=== PATIENT | male | born 1990 | race Hispanic/Latino ===

== ENCOUNTER 2016-12-23 15:56 | Emergency (ER) | payer SELFPAY ==
[2016-12-23 17:34] LABS: Hematocrit 47.5 % (35.5-45.6); Hemoglobin 15.8 gm/dl (11.8-15.2); Mean Corpuscular HGB Conc 33 % (32-34); Mean Corpuscular Hemoglobin 30 pg (28-32); Mean Corpuscular Volume 90 fl (84-94); Platelet Count 134 K/mm3 (140-440); Red Blood Count 5.25 M/mm3 (3.65-5.03); Red Cell Distribution Width 13.6 % (13.2-15.2)
[2016-12-23 17:38] LABS: Anion Gap 18 mmol/L; BUN/Creatinine Ratio 10; Blood Urea Nitrogen 6 mg/dL (9-20); Calcium 9.4 mg/dL (8.4-10.2); Carbon Dioxide 25 mmol/L (22-30); Chloride 101.7 mmol/L (98-107); Glucose 105 mg/dL (75-100); Sodium 141 mmol/L (137-145)
[2016-12-23 18:09] LABS: Bilirubin,Urine NEG (Negative); Blood,Urine SM (Negative); Ketones,Urine 20 mg/dL (Negative); Leukocyte Esterase,Urine TR (Negative); Mucus,Urine 3+ /HPF; Nitrite,Urine NEG (Negative); Protein,Urine <15 mg/dL mg/dL (Negative)
--- NOTE | 2016-12-23 19:54 | Emergency Department Report ---
HPI - General Chief Complaint: Pain General Time Seen by Provider: 12/23/16 19:53 - HPI HPI: Patient here reported that he woke up in the middle of the night with body aches , chills low-back pain and swollen lymph nodes on the left side of his neck. He reports productive cough and yellow phlegm. He said he has a history of asthma but he is not having any asthma flare. Generalized pain is 6 out of 10 and achy. No [id number] medication taken. Denies any chest pain or shortness of breath. Denies any headache. Reports difficulty swallowing and but denies any drooling. He reports that he is having chills but does not feel had a fever. Patient able to tolerate fluids. Pain is worse with swallowing better without swelling. ED Past Medical Hx - Past Medical History Previous Medical History?: Yes Hx Asthma: Yes - Surgical History Past Surgical History?: No - Family History Family history: no significant - Social History Smoking Status: Current Every Day Smoker Substance Use Type: Alcohol, Marijuana Other Social History: single - Medications Home Medications: Home Medications Medication Instructions Recorded Confirmed Last Taken Type Cetirizine HCl [Zyrtec] 10 mg PO QAM #14 tablet 12/24/16 Unknown Rx Fluticasone [Flonase] 1 spray NS QDAY #1 bottle 12/24/16 Unknown Rx Penicillin V Potassium 500 mg PO Q8H #30 tablet 12/24/16 Unknown Rx ED Review of Systems ROS: Stated complaint: FLU LIKE SYMPTOMS Other details as noted in HPI Comment: All other systems reviewed and negative Constitutional: chills. denies: fever, weakness Eyes: denies: eye pain, vision change ENT: throat pain. denies: ear pain, hearing loss, epistaxis, congestion Respiratory: cough, wheezing. denies: orthopnea, shortness of breath, SOB with exertion, SOB at rest, stridor Cardiovascular: denies: chest pain, palpitations, edema, syncope Gastrointestinal: denies: abdominal pain, nausea, vomiting, diarrhea Genitourinary: denies: urgency, dysuria, frequency, hematuria, discharge Musculoskeletal: back pain, myalgia. denies: arthralgia Skin: denies: rash Neurological: denies: headache, weakness, numbness, paresthesias, confusion, abnormal gait, vertigo Hematological/Lymphatic: swollen glands. denies: easy bleeding Physical Exam - Physical Exam Vital Signs: Vital Signs 12/23/16 16:53 Temperature 98.1 F Pulse Rate 101 H Respiratory 18 Rate Blood Pressure 138/83 O2 Sat by Pulse 97 Oximetry Vital Signs 12/23/16 12/23/16 12/23/16 16:53 21:31 21:40 Temperature 98.1 F 98.3 F Pulse Rate 101 H 96 H Pulse Rate [ 110 H Anterior Upper Lobe] Respiratory 18 20 Rate Respiratory 21 Rate [Anterior Upper Lobe] Blood Pressure 138/83 Blood Pressure 116/65 [Left] O2 Sat by Pulse 97 98 Oximetry General: This is a 26-year-old male well-nourished well-developed in no acute distress. Physical Exam: Head: Normocephalic, atraumatic, no abrasion, no bruising and no contusion. Eyes: Biateral pupils equal and reactive to light, bilateral EOM intact.. Bilateral conjunctival and sclera without injection, normal accommodation. Ears: Bilateral EAC without any redness drainage or swelling,Bilateral TM pearly reyes bilateral tragus is normal and nontender. No auricular abnormality. No Mastoid bones tenderness. Nose: Moist, congested and erythema. No maxillary or frontal sinus tenderness Mouth: Positive tonsillar erythema without exudates .oral airways patent. tongue is normal. Mouth is moist and uvula is midline Neck: Supple, Positive Cervical adenopathy greater on left than right, full range of motion and no C-spine tenderness. No swelling or tracheal deviation Cardiovascular: S1, S2. Tachycardic at 101 and regular rhythm. No murmur. Capillary refill is less then 3 seconds. Lungs: Scattered wheezes in upper lung olivares. No rhonchi or rales. No chest wall tenderness. No use of accessory muscle MSK: Strength 5/5 in all extremities. No joint deformity or crepitus. Normal inspection. Full range of motion to all extremities Extremities: No clubbing, cyanosis or edema. +2 pulses. No neurovascular compromise Skin: Clean, dry and intact. No rash or lesions. Psych: Normal mood and behavior. ED Course Vital Signs 12/23/16 16:53 Temperature 98.1 F Pulse Rate 101 H Respiratory 18 Rate Blood Pressure 138/83 O2 Sat by Pulse 97 Oximetry Vital Signs 12/23/16 12/23/16 12/23/16 16:53 21:31 21:40 Temperature 98.1 F 98.3 F Pulse Rate 101 H 96 H Pulse Rate [ 110 H Anterior Upper Lobe] Respiratory 18 20 Rate Respiratory 21 Rate [Anterior Upper Lobe] Blood Pressure 138/83 Blood Pressure 116/65 [Left] O2 Sat by Pulse 97 98 Oximetry - Reevaluation(s) Reevaluation #1: 12/23/16 21:00 Inhaler reports that he is sore throat and flulike symptoms. Physical findings for right throat. He was worked up white count elevated, platelets 134 which is low. Urinalysis negative for infection, chest x-ray is negative for any acute findings. Urinalysis positive ketones and is H&H is concentrated. Patient was started on IV fluids 1 L and he was given Decadron 10 mg IV and Toradol 30 mg IV. He voiced that he is feeling better. Influenza test is negative. Reevaluation #2: 12/23/16 21:55 Patient's strep test is negative. CT scan of the neck with contrast ordered. Patient was given Rocephin 1 g IM in the emergency room without any adverse reaction. Reevaluation #3: 12/23/16 22:34 Patient is stable and resting quietly. CT scan of the neck with contrast done. Reevaluation #4: 12/24/16 00:04 Patient is stable, pain is controlled and CT scan revealed tonsillitis with no peritonsillar abscess and chronic sinus disease. No evidence of intra- tonsillar abscess. Reactive cervical adenopathy Reevaluation #5: 12/24/16 00:22 Lung sounds better status post lung sounds clear status post nebulizer treatment ED Medical Decision Making - Lab Data Result diagrams: 12/23/16 17:02 12/23/16 17:02 Lab Results 12/23/16 12/23/16 12/23/16 Range/Units 17:02 17:02 Unknown WBC 16.0 H (4.5-11.0) K/mm3 RBC 5.25 H (3.65-5.03) M/mm3 Hgb 15.8 H (11.8-15.2) gm/dl Hct 47.5 H (35.5-45.6) % MCV 90 (84-94) fl MCH 30 (28-32) pg MCHC 33 (32-34) % RDW 13.6 (13.2-15.2) % Plt Count 134 L (140-440) K/mm3 Sodium 141 (137-145) mmol/L Potassium 4.0 (3.6-5.0) mmol/L Chloride 101.7 (98-107) mmol/L Carbon Dioxide 25 (22-30) mmol/L Anion Gap 18 mmol/L BUN 6 L (9-20) mg/dL Creatinine 0.6 L (0.8-1.5) mg/dL Estimated GFR > 60 ml/min BUN/Creatinine Ratio 10 % Glucose 105 H (75-100) mg/dL Calcium 9.4 (8.4-10.2) mg/dL Urine Color Yellow (Yellow) Urine Turbidity Clear (Clear) Urine pH 6.0 (5.0-7.0) Ur Specific [place] 1.018 (1.003-1.030) Urine Protein <15 mg/dl (Negative) mg/dL Urine Glucose (UA) Neg (Negative) mg/dL Urine Ketones 20 (Negative) mg/dL Urine Blood Sm (Negative) Urine Nitrite Neg (Negative) Urine Bilirubin Neg (Negative) Urine Urobilinogen 4.0 (<2.0) mg/dL Ur Leukocyte Esterase Tr (Negative) Urine WBC (Auto) 1.0 (0.0-6.0) /HPF Urine RBC (Auto) 6.0 (0.0-6.0) /HPF Urine Mucus 3+ /HPF - Radiology Data Radiology results: report reviewed CT scan of the neck with IV contrast revealed patient with tonsillitis without evidence of peritonsillar or intra-tonsillar abscess. Chronic sinus disease. Reactive Cervical adenopathy - Medical Decision Making ED course: Darian Ellis presents to emergency room complaining of flulike symptoms. He complained of sore throat and chills and swollen lymph nodes with heard in to his back and all over. Patient also complained that he is asthmatic and he has some wheezes in. Patient denies any chest pain or shortness of breath. Lab work revealed that CBC is elevated at 16 with hemoconcentration and platelets are 134 which is low. BMP is stable and urinalysis is stable except he has ketone of 20. Patient received 1 L normal saline in the emergency room and he was able to tolerate oral liquids. Chest x-ray negative for infection. CT scan of the neck with IV contrast reveal patient with tonsillitis, cervical adenopathy. No peritonsillar or intratonsillar abscess. Also reveals the patient with chronic ethmoid sinusitis and retention cyst and maxillary sinuses. These results were explained to patient in detail that I told him he will need to follow-up with ear nose and throat doctor and also he'll need to follow up with [facility] since he does not have a primary care physician. Patient was given Toradol 30 mg IV, Decadron 10 mg IV in emergency room for pain and swelling of tonsils. He remained stable throughout ED course and he voiced understanding of his discharge diagnosis and treatment plan. Patient was also given Rocephin 1 g IV without any adverse reaction. Patient discharged home with his family in stable condition with prescription for Motrin, penicillin, Zyrtec and Flonase. Patient received Xopenex 1.25 mg and Atrovent 0.5 mg nebulizer for wheezing in and up and reevaluation his lung sounds better. Critical care attestation.: If time is entered above; I have spent that time in minutes in the direct care of this critically ill patient, excluding procedure time. ED Disposition Clinical Impression: Mucous retention cyst of maxillary sinus, Musculoskeletal pain, Thrombocytopenia Acute tonsillitis Qualifiers: Pharyngitis/tonsillitis etiology: unspecified etiology Qualified Code(s): J03.90 - Acute tonsillitis, unspecified Pharyngitis Qualifiers: Pharyngitis/tonsillitis etiology: unspecified etiology Qualified Code(s): J02.9 - Acute pharyngitis, unspecified Sinusitis Qualifiers: Sinusitis location: ethmoidal Chronicity: chronic Qualified Code(s): J32.2 - Chronic ethmoidal sinusitis Acute asthma flare Qualifiers: Asthma severity: mild Asthma persistence: intermittent Qualified Code(s): J45.21 - Mild intermittent asthma with (acute) exacerbation Disposition: DC-01 TO HOME OR SELFCARE Is pt being admited?: No Does the pt Need Aspirin: No Condition: Stable Instructions: Asthma (ED), Sinusitis (ED), Tonsillitis (ED), Musculoskeletal Pain (ED), Thrombocytopenia (ED) Additional Instructions: increase her fluid intake Your CT scan is showing that you have cyst in your maxillary sinuses and you'll need to follow-up with ear nose and throat doctor CT scan also shows that you have sinus inflammation. Please see her nostrils out with saline nasal wash once daily Takes Zyrtec and Flonase and distal relief congestion. Take antibiotic as prescribed for tonsillitis can take Motrin as an anti-inflammatory which will help with pain. Gargle warm salt water and this will help with sore throat Please continue to take albuterol asthma. Prescriptions: Cetirizine HCl [Zyrtec] 10 mg PO QAM #14 tablet Fluticasone [Flonase] 1 spray NS QDAY #1 bottle Penicillin V Potassium 500 mg PO Q8H #30 tablet Ref[facility]: [facility] [Outside] - 2-3 Days Forms: Accompanied Note, Work/School Release Form(ED)
[2016-12-23] MEDS ORDERED: NACL 0.9% 1000 ML 1,000 ML IV ONE (19:57)
[2016-12-23] MEDS ORDERED: ROCEPHIN/NS 1 GM/50 ML 1 GM/50 ML BAG IV ONE (19:57)
[2016-12-23] MEDS ORDERED: DECADRON IV ONE (19:57)
[2016-12-23] MEDS ORDERED: TORADOL IV ONE (21:04)
--- NOTE | 2016-12-23 21:10 | XRay Report ---
FINAL REPORT EXAM: XR CHEST ROUTINE 2V HISTORY: sob/cough TECHNIQUE: 2 views of the chest. PRIORS: None. FINDINGS: The cardiomediastinal silhouette appears normal. The lungs are clear. The bones and soft tissues are unremarkable. IMPRESSION: No evidence of acute cardiopulmonary disease
[2016-12-23] MEDS ORDERED: ATROVENT IH ONE (21:15)
[2016-12-23] MEDS ORDERED: XOPENEX IH ONE (21:15)
--- NOTE | 2016-12-23 22:49 | Cat Scan Report ---
FINAL REPORT EXAM: CT NECK W CON HISTORY: pain, left INFORMATION TECHNOLOGY INSTRUCTOR TECHNIQUE: Helical CT was performed from the skull base to the thoracic inlet after the administration of iodinated intravenous contrast. PRIORS: None. FINDINGS: The pharyngeal tonsils are swollen greater on the left than the right. There is no evidence of abscess. There are multiple enlarged bilateral cervical lymph nodes. The pharynx and para-pharyngeal soft tissues appear normal. The parotid and submandibular glands appear normal. The thyroid appears normal. The vascular structures appear normal. The bones are unremarkable. No abnormal soft tissue masses are demonstrated. There is mild patchy mucosal thickening in the bilateral ethmoid air cells. There multiple mucous retention cysts in the right maxillary sinus and a single mucous retention cyst in the left maxillary sinus. IMPRESSION: Tonsillitis without evidence of peritonsillar or intra tonsillar abscess. Reactive cervical adenopathy. Chronic sinus disease
[2016-12-24 11:38] VITALS: BP 131/75
== END 2016-12-24 00:30 | disposition home or self-care (01) ==
LOC: ED 15:56
DX: J03.90 Acute tonsillitis, unspecified (principal); J32.0 Chronic maxillary sinusitis; D69.6 Thrombocytopenia, unspecified; J45.901 Unspecified asthma with (acute) exacerbation; F17.210 Nicotine dependence, cigarettes, uncomplicated; F12.10 Cannabis abuse, uncomplicated
CPT/HCPCS: 36415; 70491; 71020; 80048; 81001; 85027; 87116; 87400; 87430; 96365; 96375; 99285; J0696; J1100; J1885; J7030; Q9967